=== PATIENT | female | born 1985 | race Caucasian/White ===

== ENCOUNTER 2018-07-22 15:06 | Day surgery (SDC) | payer BC ==
--- NOTE | 2018-07-22 15:44 | EDM.PDOC ---
ED HPI GENERAL MEDICAL PROBLEM - General Chief Complaint: Abdominal Pain Stated Complaint: PAIN IN RIGHT THIGH Time Seen by Provider: 07/22/18 15:44 Source of Information: Reports: Patient History Limitations: Reports: No Limitations - History of Present Illness INITIAL COMMENTS - FREE TEXT/NARRATIVE: HISTORY AND PHYSICAL: History of present illness: Patient is a 33-year-old female here with complaint of RLQ pain in . She states she is 6 weeks , . She has been having dull RLQ pain x 1 week, today has been much more significant. She has been taking Tylenol for her pain which was helping. She states she's had spotting throughout her and has seen Dr. Santos for this, states it was related to post-intercourse spotting. She denies any worsening bleeding/spotting or vaginal discharge. She denies fevers, chills, nausea, vomiting, diarrhea, dysuria, hematuria. She states she was seen last March for possible miscarriage in her program although her hcg was negative at that time. Review of systems: As per history of present illness and below otherwise all systems reviewed and negative. Past medical history: As per history of present illness and as reviewed below otherwise noncontributory. Surgical history: As per history of present illness and as reviewed below otherwise noncontributory. Social history: No reported history of drug or alcohol abuse. Family history: As per history of present illness and as reviewed below otherwise noncontributory. Physical exam: General: Patient sitting comfortably in no acute distress and nontoxic appearing HEENT: Atraumatic, normocephalic, pupils reactive, negative for conjunctival pallor or scleral icterus, mucous membranes moist, throat clear, neck supple, nontender, trachea midline. No meningeal signs. Lungs: Clear to auscultation, breath sounds equal bilaterally, chest nontender. Heart: S1S2, regular, negative for clicks, rubs, or overt murmur. Abdomen: RLQ tenderness to palpation. No rebound, rigidity, or guarding. Negative rovsings, psoas, and obturator. Soft, nondistended. Negative for masses or hepatosplenomegaly. Negative for costovertebral tenderness. Pelvis: Stable nontender. Genitourinary: Deferred. Rectal: Deferred. Extremities: Atraumatic, negative for cords or calf pain. Neurovascular unremarkable. Neuro: Awake, alert, oriented. Cranial nerves II through XII unremarkable. Cerebellum unremarkable. Motor and sensory unremarkable throughout. Exam nonfocal. Notes: 1729 - discussed with Dr. Erickson, she would like a serum progesterone and I will call her back with this result. 1800 - Dr. Erickson informed of progesterone result, she will consult patient in the ED. 1819 - Patient will go to OR for laparoscopic Diagnostics: CBC, CMP, hcg quant, OB US Therapeutics: [place] 5/325mg Prescriptions: Impression: RLQ pain ectopic vs cyst Plan: Patient will go to OR for laparoscopic surgery with Dr. Erickson. Definitive disposition and diagnosis as appropriate pending reevaluation and review of above. 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 ED EXAM, GI/ABD - Physical Exam Exam: See Below (see dictation) Course - Vital Signs Last Recorded V/S: Last Vital Signs Temp 98.7 F 07/22/18 16:06 Pulse 83 07/22/18 16:06 Resp 18 07/22/18 16:06 BP 113/69 07/22/18 16:06 Pulse Ox 100 07/22/18 16:06 - Orders/Labs/Meds Labs: Laboratory Tests 07/22/18 07/22/18 07/22/18 Range/Units 16:00 16:00 16:00 WBC 6.67 (4.0-11.0) K/uL RBC 4.14 L (4.30-5.90) M/uL Hgb 12.5 (12.0-16.0) g/dL Hct 36.1 (36.0-46.0) % MCV 87.2 (80.0-98.0) fL MCH 30.2 (27.0-32.0) pg MCHC 34.6 (31.0-37.0) g/dL RDW Std Deviation 41.3 (28.0-62.0) fl RDW Coeff of Shamar 13 (11.0-15.0) % Plt Count 142 L (150-400) K/uL MPV 11.00 (7.40-12.00) fL Neut % (Auto) 69.5 (48.0-80.0) % Lymph % (Auto) 21.9 (16.0-40.0) % [place] % (Auto) 6.6 (0.0-15.0) % Eos % (Auto) 1.9 (0.0-7.0) % Baso % (Auto) 0.1 (0.0-1.5) % Neut # (Auto) 4.6 (1.4-5.7) K/uL Lymph # (Auto) 1.5 (0.6-2.4) K/uL [place] # (Auto) 0.4 (0.0-0.8) K/uL Eos # (Auto) 0.1 (0.0-0.7) K/uL Baso # (Auto) 0.0 (0.0-0.1) K/uL Nucleated RBC % 0.0 /100WBC Nucleated RBCs # 0 K/uL Sodium 136 (136-145) mmol/L Potassium 4.0 (3.5-5.1) mmol/L Chloride 105 (98-107) mmol/L Carbon Dioxide 25.1 (21.0-32.0) mmol/L BUN 12 (7.0-18.0) mg/dL Creatinine 0.8 (0.6-1.0) mg/dL Est Cr Clr Drug Dosing 82.74 mL/min Estimated GFR (MDRD) > 60.0 ml/min Glucose 104 (74-106) mg/dL Calcium 9.1 (8.5-10.1) mg/dL Total Bilirubin 0.4 (0.2-1.0) mg/dL AST 13 L (15-37) IU/L ALT 22 (14-63) IU/L Alkaline Phosphatase 46 (46-116) U/L Total Protein 6.9 (6.4-8.2) g/dL Albumin 3.4 (3.4-5.0) g/dL Globulin 3.5 (2.6-4.0) g/dL Albumin/Globulin Ratio 1.0 (0.9-1.6) Progesterone 5.57 NG/ML HCG, Quant 3281.0 mIU/mL Meds: Medications Discontinued Medications Generic Name Dose Route Start Last Admin Trade Name Freq PRN Reason Stop Dose Admin Hydrocodone Bitart/Acetaminophen 1 tab 07/22/18 17:34 07/22/18 17:42 [place] 325-5 Mg PO 07/22/18 17:35 1 tab ONETIME ONE Administration Departure - Departure Time of Disposition: 18:19 Disposition: Still A Patient 30 Condition: Good Clinical Impression: RLQ abdominal pain - Discharge Information Referrals: Gabbi Santos MD [Primary Care Provider] - Forms: ED Department Discharge
[2018-07-22 16:47] LABS: CHLORIDE,CL 105 mmol/L (98-107); SODIUM,NA 136 mmol/L (136-145)
--- NOTE | 2018-07-22 17:15 | US ---
INDICATION: , left-sided pelvic pain, quantitative HCG 3281 FINDINGS: There is marked heterogeneous thickening of the endometrium measuring approximate 2.5 cm. This is greatest in the fundal region. No gestational sac is seen. The left ovary is normal. In the right adnexa there is a hypoechoic oval 1.9 x 1.4 x 1.8 cm nodular density that is either exophytic or adjacent to the ovary. The ovary measures 2.3 x 2.0 x 2.0 cm with its small follicle. Small amount of free fluid adjacent to the right ovary is noted. Color Doppler examination demonstrates some peripheral color Doppler surrounding the hypoechoic structure in the right adnexa. IMPRESSION: 1. Abnormal pelvic ultrasound. 2. There is a 1.9 x 1.4 x 1.8 centimeter cm oval-shaped hypoechoic structure exophytic or adjacent to the right ovary. This has a ring of increased color Doppler blood flow. Ectopic is not excluded. 3. Small amount of free fluid in the right pelvis noted. 4. Left ovary within normal limits. 5. Abnormal heterogeneous thickening of the endometrium especially in the fundal region. This is noted to be up to 2.5 cm. No intrauterine is seen 6. 7. Findings discussed with the ordering provider. Dictated by Sotero Parnell MD @ 07/22/2018 5:13:54 PM Dictated by: Sotero Parnell MD @ 07/22/2018 17:14:06 (Electronically Signed)
[2018-07-22] MEDS ORDERED: Acetaminophen/HYDROcodone 325-5 MG Tab PO ONE (17:34)
[2018-07-22] MEDS ORDERED: Succinylcholine 200 MG/10 ML MDV ONE (18:44)
[2018-07-22] MEDS ORDERED: Propofol 200 MG/20 ML SDV ONE (18:44)
[2018-07-22] MEDS ORDERED: Ondansetron 4 MG/2 ML SDV ONE (18:44)
[2018-07-22] MEDS ORDERED: Ketorolac 30 MG/ML SDV ONE (18:44)
[2018-07-22] MEDS ORDERED: Rocuronium 10 MG/ML 10 ML Syringe ONE (18:44)
[2018-07-22] MEDS ORDERED: Midazolam 1 MG/ML 2 ML SDV ONE (18:44)
[2018-07-22] MEDS ORDERED: Lidocaine 2% 5 ML SDV ONE (18:44)
[2018-07-22] MEDS ORDERED: fentaNYL 250 MCG/5 ML SDV ONE (18:45)
[2018-07-22] MEDS ORDERED: Lactated Ringers 1,000 ML IV ONE (18:53)
[2018-07-22] MEDS ORDERED: Vasopressin 20 Units/1 ML MDV ONE (18:56)
[2018-07-22] MEDS ORDERED: Bupivacaine 0.25% 10 ML SDV ONE (18:56)
--- NOTE | 2018-07-22 19:00 | PCM.PREANE ---
Preanesthetic Assessment - Procedure Proposed Procedure: exploratory laparoscopy - Anesthesia/Transfusion/Family Hx Anesthesia History: Prior Anesthesia Without Reaction Family History of Anesthesia Reaction: No Transfusion History: Prior Transfusion Without Reaction - Review of Systems General: No Symptoms Pulmonary: No Symptoms Cardiovascular: No Symptoms Gastrointestinal: No Symptoms Neurological: No Symptoms Other: Reports: None, Anxiety - Physical Assessment NPO Status Date: 07/22/18 NPO Status Time: 17:00 O2 Sat by Pulse Oximetry: 100 Respiratory Rate: 18 Vital Signs: Last Vital Signs Temp 37.1 C 07/22/18 16:06 Pulse 83 07/22/18 16:06 Resp 18 07/22/18 16:06 BP 113/69 07/22/18 16:06 Pulse Ox 100 07/22/18 16:06 Height: 1.6 m Weight: 80.739 kg ASA Class: 2E Mental Status: Alert & Oriented x3 Dentition: Reports: Normal Dentition Thyro-Mental Finger Breadths: 3 Mouth Opening Finger Breadths: 3 ROM/Head Extension: Full Lungs: Clear to Auscultation Cardiovascular: Regular Rate (Risks and benifits of anesthesia discussed extensively with patient and family, questions anwered, pt wishes to proceed.) - Lab Values: Laboratory Last Values WBC 6.67 K/uL (4.0-11.0) 07/22/18 16:00 RBC 4.14 M/uL (4.30-5.90) L 07/22/18 16:00 Hgb 12.5 g/dL (12.0-16.0) 07/22/18 16:00 Hct 36.1 % (36.0-46.0) 07/22/18 16:00 MCV 87.2 fL (80.0-98.0) 07/22/18 16:00 MCH 30.2 pg (27.0-32.0) 07/22/18 16:00 MCHC 34.6 g/dL (31.0-37.0) 07/22/18 16:00 RDW Std Deviation 41.3 fl (28.0-62.0) 07/22/18 16:00 RDW Coeff of Shamar 13 % (11.0-15.0) 07/22/18 16:00 Plt Count 142 K/uL (150-400) L 07/22/18 16:00 MPV 11.00 fL (7.40-12.00) 07/22/18 16:00 Neut % (Auto) 69.5 % (48.0-80.0) 07/22/18 16:00 Lymph % (Auto) 21.9 % (16.0-40.0) 07/22/18 16:00 [place] % (Auto) 6.6 % (0.0-15.0) 07/22/18 16:00 Eos % (Auto) 1.9 % (0.0-7.0) 07/22/18 16:00 Baso % (Auto) 0.1 % (0.0-1.5) 07/22/18 16:00 Neut # (Auto) 4.6 K/uL (1.4-5.7) 07/22/18 16:00 Lymph # (Auto) 1.5 K/uL (0.6-2.4) 07/22/18 16:00 [place] # (Auto) 0.4 K/uL (0.0-0.8) 07/22/18 16:00 Eos # (Auto) 0.1 K/uL (0.0-0.7) 07/22/18 16:00 Baso # (Auto) 0.0 K/uL (0.0-0.1) 07/22/18 16:00 Nucleated RBC % 0.0 /100WBC 07/22/18 16:00 Nucleated RBCs # 0 K/uL 07/22/18 16:00 Sodium 136 mmol/L (136-145) 07/22/18 16:00 Potassium 4.0 mmol/L (3.5-5.1) 07/22/18 16:00 Chloride 105 mmol/L (98-107) 07/22/18 16:00 Carbon Dioxide 25.1 mmol/L (21.0-32.0) 07/22/18 16:00 BUN 12 mg/dL (7.0-18.0) 07/22/18 16:00 Creatinine 0.8 mg/dL (0.6-1.0) 07/22/18 16:00 Est Cr Clr Drug Dosing 82.74 mL/min 07/22/18 16:00 Estimated GFR (MDRD) > 60.0 ml/min 07/22/18 16:00 Glucose 104 mg/dL (74-106) 07/22/18 16:00 Calcium 9.1 mg/dL (8.5-10.1) 07/22/18 16:00 Total Bilirubin 0.4 mg/dL (0.2-1.0) 07/22/18 16:00 AST 13 IU/L (15-37) L 07/22/18 16:00 ALT 22 IU/L (14-63) 07/22/18 16:00 Alkaline Phosphatase 46 U/L (46-116) 07/22/18 16:00 Total Protein 6.9 g/dL (6.4-8.2) 07/22/18 16:00 Albumin 3.4 g/dL (3.4-5.0) 07/22/18 16:00 Globulin 3.5 g/dL (2.6-4.0) 07/22/18 16:00 Albumin/Globulin Ratio 1.0 (0.9-1.6) 07/22/18 16:00 Progesterone 5.57 NG/ML 07/22/18 16:00 HCG, Quant 3281.0 mIU/mL 07/22/18 16:00 - Allergies Allergies/Adverse Reactions: Allergies Allergy/AdvReac Type Severity Reaction Status Date / Time ceftriaxone [From Rocephin] Allergy Rash Verified 04/19/18 17:27 oseltamivir [From Tamiflu] Allergy Rash Verified 04/19/18 17:27 PreAnesthesia Questionnaire Respiratory History: Reports: Asthma 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 History: had Rhogam with past pregnancies Hematologic History: Reports: Blood Transfusion(s) - Infectious Disease History Infectious Disease History: Reports: Chicken Pox - Past Surgical History HEENT Surgical History: Reports: Naso-Sinus Surgery, Tonsillectomy - SUBSTANCE USE Smoking Status *Q: Never Smoker Recreational Drug Use History: No - HOME MEDS Home Medications: Home Meds Albuterol [Ventolin HFA] 2 puff INH BID 04/19/18 [History] Pnv No.95/Ferrous Fum/Folic AC [ Caplet] 1 cap PO DAILY 07/22/18 [ History] - CURRENT (IN HOUSE) MEDS Current Meds: Current Medications Lactated Ringer's (Ringers, Lactated) 1,000 mls @ 999 mls/hr IV .BOLUS ONE Stop: 07/22/18 19:53 Discontinued Medications Hydrocodone Bitart/Acetaminophen ([place] 325-5 Mg) 1 tab PO ONETIME ONE Stop: 07/22/18 17:35 Last Admin: 07/22/18 17:42 Dose: 1 tab Fentanyl (Sublimaze) Confirm Administered Dose 250 mcg .ROUTE .STK-MED ONE Stop: 07/22/18 18:46 Ketorolac Tromethamine (Toradol) Confirm Administered Dose 30 mg .ROUTE .STK- MED ONE Stop: 07/22/18 18:45 Lidocaine (Xylocaine-Mpf 2%) Confirm Administered Dose 5 ml .ROUTE .STK-MED ONE Stop: 07/22/18 18:45 Midazolam HCl (Versed 1 Mg/Ml) Confirm Administered Dose 2 mg .ROUTE .STK-MED ONE Stop: 07/22/18 18:45 Ondansetron HCl (Zofran) Confirm Administered Dose 8 mg .ROUTE .STK-MED ONE Stop: 07/22/18 18:45 Propofol (Diprivan 20 Ml) Confirm Administered Dose 200 mg .ROUTE .STK-MED ONE Stop: 07/22/18 18:45 Rocuronium [place] (Zemuron) Confirm Administered Dose 100 mg .ROUTE .STK-MED ONE Stop: 07/22/18 18:45 Succinylcholine Chloride (Quelicin) Confirm Administered Dose 200 mg .ROUTE .STK -MED ONE Stop: 07/22/18 18:45
[2018-07-22] MEDS ORDERED: Acetaminophen/HYDROcodone 325-5 MG Tab PO PRN (19:12)
[2018-07-22] MEDS ORDERED: Albuterol 0.083% 2.5 MG/3 ML Neb Soln NEB PRN (19:12)
[2018-07-22] MEDS ORDERED: Naloxone 0.4 MG/ML Syringe IVPUSH PRN (19:12)
[2018-07-22] MEDS ORDERED: hydrALAZINE 20 MG/ML SDV IVPUSH PRN ×2 (19:12)
[2018-07-22] MEDS ORDERED: Morphine 4 MG/ML Syringe IVPUSH PRN ×2 (19:12→21:55)
[2018-07-22] MEDS ORDERED: HYDROmorphone 2 MG/ML SDV IVPUSH PRN (19:12)
[2018-07-22] MEDS ORDERED: Meperidine PF 25 MG/ML Syringe IVPUSH PRN (19:12)
[2018-07-22] MEDS ORDERED: Scopolamine 1.5 MG Transdermal Patch TRDERM PRN (19:12)
[2018-07-22] MEDS ORDERED: Ondansetron 4 MG/2 ML SDV IVPUSH PRN ×2 (19:12→21:55)
[2018-07-22] MEDS ORDERED: Acetaminophen 325 MG Tab PO ONE (19:12)
[2018-07-22] MEDS ORDERED: Promethazine 25 MG/ML SDV IM PRN ×2 (19:12→21:55)
[2018-07-22] MEDS ORDERED: Atropine 0.1 MG/ML 10 ML Syringe IVPUSH PRN (19:12)
[2018-07-22] MEDS ORDERED: Metoclopramide 10 MG/2 ML SDV IVPUSH PRN (19:12)
[2018-07-22] MEDS ORDERED: Meperidine PF 25 MG/ML Syringe IV PRN (19:12)
[2018-07-22] MEDS ORDERED: Labetalol 20 MG/4 ML Syringe IVPUSH PRN (19:12)
[2018-07-22] MEDS ORDERED: Dexamethasone 4 MG/ML 5 ML MDV ONE (19:30)
[2018-07-22] MEDS ORDERED: Meperidine PF 25 MG/ML Syringe ONE (21:09)
[2018-07-22] MEDS ORDERED: fentaNYL 100 MCG/2 ML SDV ONE (21:37)
[2018-07-22] MEDS: fentaNYL 100 MCG/2 ML SDV IVPUSH PRN ×2 (21:38→21:44)
--- NOTE | 2018-07-22 21:52 | PCM.POSTAN ---
POST ANESTHESIA ASSESSMENT - VITAL SIGNS Pulse Rate: 86 SaO2: 99 Resp Rate: 16 Blood Pressure: 110/60 Temperature: 37.2 C - RESPIRATORY Respiratory Status: Respiratory Rate WNL - CARDIOVASCULAR CV Status: Pulse Rate WNL - GASTROINTESTINAL GI Status: No Symptoms - POST OP HYDRATION Hydration Status: Adequate & Stable (pt cofortable at this time. no signs or symptoms of anesthesia related complications.)
[2018-07-22] MEDS ORDERED: Ketorolac 30 MG/ML SDV IVPUSH PRN (21:55)
[2018-07-22] MEDS ORDERED: Ketorolac 30 MG/ML SDV IVPUSH ONE (21:55)
[2018-07-22] MEDS ORDERED: Acetaminophen/oxyCODONE 325-5 MG Tab PO PRN ×2 (21:55)
--- NOTE | 2018-07-22 22:15 | PCM.OPNOTE ---
- General Post-Op/Procedure Note Date of Surgery/Procedure: 07/22/18 Operative Procedure(s): Laparoscopic right salphingectomy Findings: Right ectopic with ectopic at the infundibulum of the tube 50 cc hemoperitoneum Pre Op Diagnosis: Acute pelvic pain secondary. r/o ectopic Post-Op Diagnosis: Right ectopic Primary Surgeon: Hudson Hightower Pathology: Right ectopic Fluid Replacement, Intraop: 1,500 Output, Urine Amount: 0 EBL in mLs: 100 Complications: None Condition: Stable
[2018-07-22] MEDS ORDERED: Rho(D) Immune Globulin 300 MCG/2 ML Syringe IM ONE (22:52)
[2018-07-22] MEDS ORDERED: Acetaminophen/oxyCODONE 325-5 MG Tab PO ONE (23:19)
--- NOTE | 2018-07-25 09:39 | OR ---
SURGEON: ABRAM RUBY DATE OF PROCEDURE: 07/22/2018 PREOPERATIVE DIAGNOSIS: Acute pelvic pain, suspected ectopic . POSTOPERATIVE DIAGNOSIS: Right ectopic . IV FLUID: 1500. EBL: 5 mL plus about 90 mL of hemoperitoneum. PROCEDURE: Operative laparoscopy with right salpingectomy. FINDING: Right tubal ectopic in the infundibulum with 90 mL of hemoperitoneum. Normal appearing ovaries and left fallopian tube and uterus. PATHOLOGY: Right tube with ectopic . BRIEF HISTORY: Patient is a 33-year-old patient, about 6 weeks, who complained of acute pelvic pain for 1 week. Yesterday, when she was seen, she said the pain was constant. The patient was extremely in tears. She had an ultrasound done that showed a complex mass in the right adnexa, minimal fluid in the cul-de-sac. Beta-hCG was 3200, progesterone was 5. As a result of patient's discomfort, she was consented for diagnostic laparoscopy. The patient understood the risks, benefits, and alternatives and desired to proceed. PROCEDURE: The patient was taken to the operating room, where general anesthesia was performed without difficulty. She was placed in the dorsolithotomy position with Jem stirrups. She was prepared and draped in the normal usual sterile fashion. Sponge stick was placed in the vagina. Then subumbilical incision was placed, after injection of Marcaine. The abdomen was entered with a fiberoptic trocar with direct entry. Upon entry into the abdomen, the pneumoperitoneum was increased to 50 mmHg. The patient was placed in the reverse Trendelenburg position. The right ectopic was then noted at the infundibulum. A left lower quadrant incision was made two fingerbreadths medial and superior to the anterior iliac spine. The trocar was entered via direct entry. Another incision was made 2 cm above the pubic symphysis and 1 cm to the right. Then, the right tube was held, was coagulated and cut with the aid of the LigaSure device. The hemoperitoneum was suctioned. Then irrigation was done and was suctioned. Hemostasis was noted after the procedure. The pneumoperitoneum was reduced to 5. Hemostasis was also noted. All the trocars were removed from the abdomen. The abdomen was desufflated. After the tube was coagulated and cut along the mesosalpinx, a 12 mm trocar was placed in the umbilical port. EndoCatch bag was placed, and the specimen was placed in the EndoCatch bag and was removed. Laparoscopic incisions were closed with 3-0 Monocryl. The umbilical incision, the fascia was closed with 2-0 Vicryl on a Euro 6 needle, and the incision of the umbilicus was then closed. The skin was closed with 3-0 Monocryl. The patient tolerated the procedure well. All instrument and pad counts were correct x2. BRITTNEY / KIRT /[id number]
== END 2018-07-23 00:15 | disposition home or self-care (01) ==
LOC: MW.ED 15:06 → MW.SDS 21:26 → MW.MS 21:29 → MW.SDS 07-23 00:15
PROVIDERS: ATTEND Obstetrics & Gynecology
DX: O00.101 Right tubal pregnancy without intrauterine pregnancy (principal); O99.52 Diseases of the respiratory system complicating childbirth; J45.909 Unspecified asthma, uncomplicated; Z88.1 Allergy status to other antibiotic agents; Z88.8 Allergy status to other drugs, medicaments and biological substances
CPT/HCPCS: 36415; 59151; 76801; 80053; 84144; 84702; 85025; 86850; 86900; 86901; 96360; 99285; A9270; J0330; J1100; J1885; J2001; J2405; J2704; J2792; J3010; J3490; J7120; 36430; 88305; J2250

== ENCOUNTER 2019-04-26 00:23 | Inpatient (IN) | payer BC ==
[2019-04-26] MEDS ORDERED: Nalbuphine 10 MG/1 ML Vial IVPUSH PRN (00:44)
[2019-04-26] MEDS ORDERED: Misoprostol 200 MCG Tab PO PRN (00:44)
[2019-04-26] MEDS ORDERED: Sodium Chloride 0.9% 2.5 ML Syringe FLUSH PRN (00:44)
[2019-04-26] MEDS ORDERED: Terbutaline 1 MG/ML SDV SUBCUT PRN (00:44)
[2019-04-26] MEDS ORDERED: Sodium Chloride 0.9% 10 ML SDV IV PRN (00:44)
[2019-04-26] MEDS ORDERED: Methylergonovine 0.2 MG/1 ML Amp IM PRN (00:44)
[2019-04-26] MEDS ORDERED: Sodium Chloride 0.9% 10 ML Syringe FLUSH PRN (00:44)
[2019-04-26] MEDS ORDERED: Lidocaine 1% 50 ML MDV INJECT PRN (00:44)
[2019-04-26] MEDS ORDERED: Tranexamic Acid 1,000 MG in Sodium Chloride 0.9% 100 ML IV PRN (00:44)
[2019-04-26] MEDS ORDERED: Water For Irrigation,Sterile 1,000 ML Container IRR PRN (00:44)
[2019-04-26] MEDS ORDERED: Carboprost Tromethamine 250 MCG/1 ML Amp IM PRN (00:44)
[2019-04-26] MEDS ORDERED: Oxytocin/0.9 % Sodium Chloride 30 UNIT/500 ML BAG IV SCH ×2 (00:45)
[2019-04-26] MEDS: Misoprostol 25 MCG (1/4 of 100 MCG) Tab VAG PRN ×4 (01:39→14:31)
[2019-04-26] MEDS: Butorphanol 1 MG/ML SDV IVPUSH PRN ×2 (14:55→18:33)
[2019-04-26] MEDS: Lactated Ringers 1,000 ML IV SCH ×2 (21:35→22:15)
[2019-04-26] MEDS ORDERED: fentaNYL 100 MCG/2 ML SDV ONE (21:49)
[2019-04-26] MEDS ORDERED: Ropivacaine 0.2% 2 MG/ML 20 ML SDV ONE (21:50)
[2019-04-26] MEDS ORDERED: Ropivacaine HCl/PF 100 ML ONE (21:50)
--- NOTE | 2019-04-26 22:46 | PCM.PREANE ---
Preanesthetic Assessment - Procedure Proposed Procedure: Requested for labor epidural. G5D6-00 weeks-3cm. Planning to be placed on pitocin. Hx of slowing labor with epidurals in past. - Anesthesia/Transfusion/Family Hx Anesthesia History: Prior Anesthesia Without Reaction Family History of Anesthesia Reaction: No Transfusion History: No Prior Transfusion(s) Type of Transfusion Reactions: Reports: Unknown Intubation History: Unknown - Review of Systems General: No Symptoms Pulmonary: No Symptoms Cardiovascular: No Symptoms Gastrointestinal: No Symptoms Neurological: No Symptoms Other: Reports: None - Physical Assessment NPO Status Date: 04/26/19 NPO Status Time: 22:00 (Clear liquids) Height: 1.6 m Weight: 97.976 kg ASA Class: 2 Mental Status: Alert & Oriented x3 Airway Class: Mallampati = 2 Dentition: Reports: Normal Dentition Thyro-Mental Finger Breadths: 3 Mouth Opening Finger Breadths: 3 ROM/Head Extension: Full Lungs: Clear to Auscultation Cardiovascular: Regular Rate - Lab Values: Laboratory Last Values WBC 10.04 K/uL (4.0-11.0) 04/26/19 01:05 RBC 4.13 M/uL (4.30-5.90) L 04/26/19 01:05 Hgb 12.8 g/dL (12.0-16.0) 04/26/19 01:05 Hct 36.8 % (36.0-46.0) 04/26/19 01:05 MCV 89.1 fL (80.0-98.0) 04/26/19 01:05 MCH 31.0 pg (27.0-32.0) 04/26/19 01:05 MCHC 34.8 g/dL (31.0-37.0) 04/26/19 01:05 RDW Std Deviation 47.1 fl (28.0-62.0) 04/26/19 01:05 RDW Coeff of Shamar 15 % (11.0-15.0) 04/26/19 01:05 Plt Count 129 K/uL (150-400) L 04/26/19 01:05 MPV 11.30 fL (7.40-12.00) 04/26/19 01:05 Blood Type A NEGATIVE 04/26/19 01:05 Antibody Screen NEGATIVE 04/26/19 01:05 - Allergies Allergies/Adverse Reactions: Allergies Allergy/AdvReac Type Severity Reaction Status Date / Time ceftriaxone [From Rocephin] Allergy Rash Verified 04/19/18 17:27 oseltamivir [From Tamiflu] Allergy Rash Verified 04/19/18 17:27 - Blood Blood Available: No Product(s) Available: None - Anesthesia Plan Pre-Op Medication Ordered: None - Acknowledgements Anesthesia Type Planned: Epidural Pt an Appropriate Candidate for the Planned Anesthesia: Yes Alternatives and Risks of Anesthesia Discussed w Pt/Guardian: Yes Pt/Guardian Understands and Agrees with Anesthesia Plan: Yes Additional Comments: Discussed. Permit signed. ? answered. Wishes to proceed. PreAnesthesia Questionnaire HEENT History: Reports: None Cardiovascular History: Reports: None Respiratory History: Reports: Asthma Gastrointestinal History: Reports: None Genitourinary History: Reports: None ORDERLY History: Reports: Other OB/BYN History: had Rhogam with past pregnancies Musculoskeletal History: Reports: None Neurological History: Reports: None Psychiatric History: Reports: None Endocrine/Metabolic History: Reports: None Hematologic History: Reports: Blood Transfusion(s) Immunologic History: Reports: None Oncologic (Cancer) History: Reports: None Dermatologic History: Reports: None - Infectious Disease History Infectious Disease History: Reports: Chicken Pox - Past Surgical History Head Surgeries/Procedures: Reports: None HEENT Surgical History: Reports: Adenoidectomy, Naso-Sinus Surgery, Tonsillectomy, Other (See Below) Other HEENT Surgeries/Procedures: [place] tooth extraction Cardiovascular Surgical History: Reports: None Respiratory Surgical History: Reports: None GI Surgical History: Reports: None Female Surgical History: Reports: None Endocrine Surgical History: Reports: None Neurological Surgical History: Reports: None Musculoskeletal Surgical History: Reports: None Oncologic Surgical History: Reports: None Dermatological Surgical History: Reports: None - SUBSTANCE USE Smoking Status *Q: Never Smoker Second Hand Smoke Exposure: No Recreational Drug Use History: No - HOME MEDS Home Medications: Home Meds Albuterol [Ventolin HFA] 2 puff INH BID 04/19/18 [History] Acetaminophen/oxyCODONE [Percocet 325-5 MG] 1 - 2 tab PO Q4H PRN 5 Days #10 tablet 07/22/18 [Rx] Pnv No.95/Ferrous Fum/Folic AC [ Caplet] 1 cap PO DAILY 07/22/18 [ History] - CURRENT (IN HOUSE) MEDS Current Meds: Current Medications Butorphanol Tartrate (Stadol) 1 mg IVPUSH Q1H PRN PRN Reason: Pain Last Admin: 04/26/19 18:33 Dose: 1 mg Carboprost Tromethamine (Hemabate Ds) 250 mcg IM ASDIRECTED PRN PRN Reason: Post Hemorrhage Lactated Ringer's (Ringers, Lactated) 1,000 mls @ 150 mls/hr IV ASDIRECTED JJ Last Infusion: 04/26/19 22:37 Dose: 150 mls/hr Oxytocin/Sodium Chloride (Oxytocin 30 Unit/500 Ml-Ns) 30 unit in 500 mls @ 500 mls/hr IV TITRATE JJ Oxytocin/Sodium Chloride (Oxytocin 30 Unit/500 Ml-Ns) 30 unit in 500 mls @ 2 mls/hr IV TITRATE JJ; Protocol Tranexamic Acid 1,000 mg/ (Sodium Chloride) 110 mls @ 660 mls/hr IV ONETIME PRN PRN Reason: Bleeding Lidocaine HCl (Xylocaine 1%) 50 ml INJECT ONETIME PRN PRN Reason: Laceration repair Methylergonovine Maleate (Methergine) 0.2 mg IM ASDIRECTED PRN PRN Reason: Post Hemorrhage Misoprostol (Cytotec) 200 mcg PO ONETIME PRN PRN Reason: Post Hemorrhage Misoprostol (Cytotec) 25 mcg VAG Q4H PRN PRN Reason: Cervical Ripening Last Admin: 04/26/19 14:31 Dose: 25 mcg Nalbuphine HCl (Nubain) 10 mg IVPUSH Q1H PRN PRN Reason: Pain (severe 7-10) Sodium Chloride (Saline Flush) 10 ml FLUSH ASDIRECTED PRN PRN Reason: Keep Vein Open Sodium Chloride (Saline Flush) 2.5 ml FLUSH ASDIRECTED PRN PRN Reason: Keep Vein Open Sodium Chloride (Normal Saline) 10 ml IV ASDIRECTED PRN PRN Reason: IV Use Sterile Water (Sterile Water For Irrigation) 1,000 ml IRR ASDIRECTED PRN PRN Reason: delivery Terbutaline Sulfate ([place]ine) 0.25 mg SUBCUT ASDIRECTED PRN PRN Reason: Tacysystole Discontinued Medications Fentanyl (Sublimaze) Confirm Administered Dose 100 mcg .ROUTE .STK-MED ONE Stop: 04/26/19 21:50 Ropivacaine (Naropin 0.2%) Confirm Administered Dose 100 mls @ as directed .ROUTE .STK-MED ONE Stop: 04/26/19 21:51 Ropivacaine (Naropin 0.2%) Confirm Administered Dose 20 ml .ROUTE .STK-MED ONE Stop: 04/26/19 21:51
--- NOTE | 2019-04-26 23:02 | PCM.PRNOTE ---
- Free Text/Narrative Note: 34 y/o in active labor, 3cm, requests labor analgesia. Planning on starting pitocin tonight. 22:03 Prep with chloroprep 22:06 L3-L4 space localized with 4ml 1% lidocaine 22:09 Space ID'd via KRYSTIAN with air/saline combo. Re-ID'd with 3ml saline. 22:10 Catheter threaded to 8cm without incident. 22:11-12 Test dose with 1.5% Lido with 1:200K epi added. Negative aspiration. Negative test. Secured with occlusive drsg. 22:18-26 Bolus given. 8ml 0.2% Naropin+ 100mcg Fentanyl added. Vital signs stable, see nurses notes. Labored slowed, past Hx of same/PT. Pain 0. 23:00 Doing well. Labor resumed. VSS. Will start infusion @ 8ml/hr with 4ml q15 bolus option. Doing well at present. No issues noted.
[2019-04-27] MEDS: Lactated Ringers 1,000 ML IV SCH ×3 (00:23→14:40)
[2019-04-27] MEDS ORDERED: Ondansetron 4 MG/2 ML SDV IVPUSH PRN (14:16)
[2019-04-27] MEDS ORDERED: fentaNYL 100 MCG/2 ML SDV ONE (14:24)
[2019-04-27] MEDS ORDERED: Ropivacaine HCl/PF 100 ML ONE (14:25)
--- NOTE | 2019-04-27 14:33 | PCM.PRNOTE ---
- Free Text/Narrative Note: Anes NOte I was called to replace a completed epidural infusion bag. I administered a top up dose of 5 cc 2%lido with epi. I then replaced epidural bag with a new 100 cc 0.2% ropivicaine with 1 mcg/cc fentanyl added. Infusion was restarted at 8 cc hr with 6 cc q 20 min prn bolus. Andrew reports very good analgesia. Sanju Stone CRNA
[2019-04-27] MEDS ORDERED: Acetaminophen 500 MG Tab PO ONE (15:29)
[2019-04-27] MEDS ORDERED: Ampicillin/Sulbactam Na 3 GM in Sodium Chloride 0.9% 100 ML IV ONE (15:29)
[2019-04-27] MEDS ORDERED: Ibuprofen 400 MG Tab PO PRN (16:03)
[2019-04-27] MEDS ORDERED: Bisacodyl 10 MG Supp RECTAL PRN (16:03)
[2019-04-27] MEDS ORDERED: Lanolin 100% Cream 7 GM Tube TOP PRN (16:03)
[2019-04-27] MEDS ORDERED: Acetaminophen 500 MG Tab PO PRN ×2 (16:03)
[2019-04-27] MEDS ORDERED: Witch Hazel Medicated Pads 40/Jar TOP PRN (16:03)
[2019-04-27] MEDS ORDERED: Docusate Sodium 100 MG Cap PO PRN (16:03)
[2019-04-27] MEDS ORDERED: Ibuprofen 800 MG Tab PO PRN (16:03)
[2019-04-27] MEDS ORDERED: oxyCODONE 5 MG Tab PO PRN (16:03)
[2019-04-27] MEDS ORDERED: Benzocaine/Menthol 20%-0.5% Spray 78 GM Cannister TOP PRN (16:03)
--- NOTE | 2019-04-27 16:08 | PCM.DEL ---
L & D Note - General Info Date of Service: 04/27/19 Mother's Due Date: 05/03/19 - Delivery Note Labor: Augmented by Oxytocin Cervical Ripening Method: Misoprostil Delivery Outcome: Livebirth Delivery Method: Spontaneous Vaginal Delivery-Single Presentation: Right Occiput Anterior (CHARLIE) Nuchal Cord: Present Anesthesia Type: Epidural Amniotic Fluid Description: Meconium Stained Episiotomy Type: None Laceration: None Placenta: Intact Estimated Blood Loss: 200 Resuscitation Needed: No : Bulb Syringe, Stimulated, Warmed Score 1 min: 8 Score 5 min: 9 Delivery Comments (Free Text/Narrative):: Live male delivered at 1535 , 8/9 weight 3820g, intact perineum - General Info Date of Service: 04/27/19 - Patient Data Vitals - Most Recent: Last Vital Signs Temp 38.6 C H 04/27/19 15:38 Pulse Resp BP Pulse Ox Weight - Most Recent: 97.976 kg Med Orders - Current: Current Medications Butorphanol Tartrate (Stadol) 1 mg IVPUSH Q1H PRN PRN Reason: Pain Last Admin: 04/26/19 18:33 Dose: 1 mg Carboprost Tromethamine (Hemabate Ds) 250 mcg IM ASDIRECTED PRN PRN Reason: Post Hemorrhage Lactated Ringer's (Ringers, Lactated) 1,000 mls @ 150 mls/hr IV ASDIRECTED JJ Last Admin: 04/27/19 14:40 Dose: 150 mls/hr Oxytocin/Sodium Chloride (Oxytocin 30 Unit/500 Ml-Ns) 30 unit in 500 mls @ 500 mls/hr IV TITRATE JJ Oxytocin/Sodium Chloride (Oxytocin 30 Unit/500 Ml-Ns) 30 unit in 500 mls @ 2 mls/hr IV TITRATE JJ; Protocol Last Titration: 04/27/19 15:25 Dose: 16 munits/min, 16 mls/hr Tranexamic Acid 1,000 mg/ (Sodium Chloride) 110 mls @ 660 mls/hr IV ONETIME PRN PRN Reason: Bleeding Ampicillin Sodium/Sulbactam (Sodium 3 gm/ Sodium Chloride) 100 mls @ 200 mls/ hr IV ONETIME ONE Stop: 04/27/19 15:58 Lidocaine HCl (Xylocaine 1%) 50 ml INJECT ONETIME PRN PRN Reason: Laceration repair Methylergonovine Maleate (Methergine) 0.2 mg IM ASDIRECTED PRN PRN Reason: Post Hemorrhage Last Admin: 04/27/19 15:42 Dose: 0.2 mg Misoprostol (Cytotec) 200 mcg PO ONETIME PRN PRN Reason: Post Hemorrhage Misoprostol (Cytotec) 25 mcg VAG Q4H PRN PRN Reason: Cervical Ripening Last Admin: 04/26/19 14:31 Dose: 25 mcg Nalbuphine HCl (Nubain) 10 mg IVPUSH Q1H PRN PRN Reason: Pain (severe 7-10) Ondansetron HCl (Zofran) 4 mg IVPUSH Q6H PRN PRN Reason: Nausea/Vomiting Last Admin: 04/27/19 14:40 Dose: 4 mg Sodium Chloride (Saline Flush) 10 ml FLUSH ASDIRECTED PRN PRN Reason: Keep Vein Open Sodium Chloride (Saline Flush) 2.5 ml FLUSH ASDIRECTED PRN PRN Reason: Keep Vein Open Sodium Chloride (Normal Saline) 10 ml IV ASDIRECTED PRN PRN Reason: IV Use Sterile Water (Sterile Water For Irrigation) 1,000 ml IRR ASDIRECTED PRN PRN Reason: delivery Last Admin: 04/27/19 15:38 Dose: 1,000 ml Terbutaline Sulfate (Brethine) 0.25 mg SUBCUT ASDIRECTED PRN PRN Reason: Tacysystole Discontinued Medications Acetaminophen (Tylenol Extra Strength) 1,000 mg PO ONETIME ONE Stop: 04/27/19 15:30 Last Admin: 04/27/19 15:38 Dose: 1,000 mg Fentanyl (Sublimaze) Confirm Administered Dose 100 mcg .ROUTE .STK-MED ONE Stop: 04/26/19 21:50 Last Admin: 04/27/19 09:06 Dose: Not Given Fentanyl (Sublimaze) Confirm Administered Dose 100 mcg .ROUTE .STK-MED ONE Stop: 04/27/19 14:25 Last Admin: 04/27/19 14:45 Dose: Not Given Ropivacaine (Naropin 0.2%) Confirm Administered Dose 100 mls @ as directed .ROUTE .STK-MED ONE Stop: 04/26/19 21:51 Last Admin: 04/27/19 09:06 Dose: Not Given Fentanyl/Bupivacaine HCl (Ahvpajqv-Vgnwk-Up 2 Mcg/Ml-0.125%) Confirm Administered Dose 100 mls @ as directed .ROUTE .Played-MED ONE Stop: 04/27/19 08:57 Last Admin: 04/27/19 09:07 Dose: Not Given Ropivacaine (Naropin 0.2%) Confirm Administered Dose 100 mls @ as directed .ROUTE .Played-MED ONE Stop: 04/27/19 14:26 Last Admin: 04/27/19 14:45 Dose: Not Given Ropivacaine (Naropin 0.2%) Confirm Administered Dose 20 ml .ROUTE .Played-MED ONE Stop: 04/26/19 21:51 Last Admin: 04/27/19 09:06 Dose: Not Given - Problem List & Annotations (1) Vaginal delivery SNOMED Code(s): 116793453 Code(s): O80 - ENCOUNTER FOR FULL-TERM UNCOMPLICATED DELIVERY Status: Acute Current Visit: Yes - Problem List Review Problem List Initiated/Reviewed/Updated: Yes - My Orders Last 24 Hours: My Active Orders 04/27/19 14:16 Ondansetron [Zofran] 4 mg IVPUSH Q6H PRN 04/27/19 15:29 Ampicillin/Sulbactam Na [Unasyn] 3 gm Sodium Chloride 0.9% [Normal Saline] 100 ml IV ONETIME 04/27/19 16:03 Patient Status [ADT] Routine May Shower [RC] ASDIRECTED Up ad Sandi [RC] ASDIRECTED Vital Signs [RC] PER UNIT ROUTINE BLOOD GAS ARTERIAL UMBILICAL [BG] Stat BLOOD GAS VENOUS UMBILICAL [BG] Stat RHIG WORKUP, [BBK] Routine Acetaminophen [Tylenol Extra Strength] 1,000 mg PO Q4H PRN Acetaminophen [Tylenol Extra Strength] 500 mg PO Q4H PRN Benzocaine/Menthol [Dermoplast Pain Relief 20%-0.5% Wallace] 78 gm TOP ASDIRECTED PRN Bisacodyl [Dulcolax] 10 mg RECTAL ONETIME PRN Docusate Sodium [Colace] 100 mg PO BID PRN Ibuprofen [Motrin] 400 mg PO Q4H PRN Ibuprofen [Motrin] 800 mg PO Q6H PRN Lanolin [Lansinoh HPA] See Dose Instructions TOP ASDIRECTED PRN [place] [Tucks] 1 pad TOP ASDIRECTED PRN oxyCODONE 5 mg PO Q2H PRN Assess Lochia [WOMSER] Per Unit Routine Assess Uterine Involution [WOMSER] Per Unit Routine Peripheral IV Discontinue [OM.PC] Routine 04/28/19 05:11 HEMOGLOBIN/HEMATOCRIT,HH [HEME] Timed
--- NOTE | 2019-04-27 20:47 | OR ---
SURGEON: ABRAM HIGHTOWER DATE OF PROCEDURE: 04/27/2019 PREOPERATIVE DIAGNOSES: A 34-year-old G5, P2-0-2-2 at 39 weeks 0 days, undergoing induction of labor for suspected macrosomia. RH negative POSTOPERATIVE DIAGNOSIS: A 34-year-old G5, P2-0-2-2 at 39 weeks 0 days, undergoing induction of labor for suspected macrosomia. RH negative PROCEDURE: Normal spontaneous vaginal delivery. PRIMARY SURGEON: Abram Highotwer. ANESTHESIA: Epidural. ESTIMATED BLOOD LOSS: 200. IV FLUID: Pitocin running. NOTES AND FINDINGS: Live male delivered at 1535. score of 8 and 9. Weight is 3820 g. BRIEF HISTORY: She is a 34-year-old G5, P2-2-0-2 at 39 weeks 0 days, who came in for induction of labor secondary to suspected macrosomia. She also desired an elective induction of labor. She was Rh-negative. Also history of HSV, on acyclovir. No active lesions.On admission, she received a couple of doses of Cytotec about 5 doses, after which Pitocin was started. After Pitocin was started, she was AROM'd, clear fluid was noted. After which, the patient then made change, she became fully dilated. PROCEDURE: On the patient being fully dilated, she was encouraged to push. With good pushing effort, she delivered the head, subsequently by the anterior and posterior shoulder, then the body of the was delivered. Delayed cord clamping was observed. The placenta was delivered via controlled cord traction. Cord blood gases were obtained. The bimanual exam was done. Uterus was noted to be firm. Perineum was noted to be intact. The patient was left in Labor and Delivery room in stable condition. All instrument and pad count were correct x2. BRITTNEY / KIRT /[id number] LAST
--- NOTE | 2019-04-28 06:07 | PCM.POSTAN ---
POST ANESTHESIA ASSESSMENT - MENTAL STATUS Mental Status: Alert - VITAL SIGNS Vital Signs: Last Vital Signs Temp 37.3 C 04/27/19 17:15 Pulse Resp BP Pulse Ox - RESPIRATORY Respiratory Status: Respiratory Rate WNL - CARDIOVASCULAR CV Status: Pulse Rate WNL - GASTROINTESTINAL GI Status: No Symptoms - POST OP HYDRATION Hydration Status: Adequate & Stable
--- NOTE | 2019-04-28 06:07 | PCM48HPAN ---
Post Anesthesia Note - EVALUATION WITHIN 48HRS OF ANESTHETIC Vital Signs in Normal Range: Yes Patient Participated in Evaluation: Yes Respiratory Function Stable: Yes Airway Patent: Yes Cardiovascular Function Stable: Yes Hydration Status Stable: Yes Pain Control Satisfactory: Yes Nausea and Vomiting Control Satisfactory: Yes Mental Status Recovered: Yes Vital Signs: Last Vital Signs Temp 37.3 C 04/27/19 17:15 Pulse Resp BP Pulse Ox
--- NOTE | 2019-04-28 08:19 | PCM.PNPP ---
- General Info Date of Service: 04/28/19 Admission Dx/Problem (Free Text): Pain well controlled. Bleeding minimal. without difficulty. Functional Status: Reports: Pain Controlled, Tolerating Diet, Ambulating, Urinating - Review of Systems General: Reports: No Symptoms HEENT: Reports: No Symptoms Pulmonary: Denies: Shortness of Breath Cardiovascular: Denies: Chest Pain Gastrointestinal: Denies: Abdominal Pain Genitourinary: Reports: No Symptoms Musculoskeletal: Reports: No Symptoms Skin: Reports: No Symptoms Neurological: Reports: No Symptoms Psychiatric: Reports: No Symptoms - Patient Data Vital Signs - Most Recent: Last Vital Signs Temp 36.4 C 04/28/19 03:00 Pulse 75 04/28/19 03:00 Resp 18 04/28/19 03:00 BP 96/61 04/28/19 03:00 Pulse Ox 95 04/28/19 03:00 Weight - Most Recent: 97.976 kg I&O - Last 24 Hours: Intake & Output 04/27/19 04/28/19 04/28/19 22:59 06:59 14:59 Intake Total 2 Balance 2 Lab Results - Last 24 Hours: Laboratory Results - last 24 hr 04/26/19 04/27/19 04/27/19 Range/Units 01:05 15:35 16:25 Hgb (12.0-16.0) g/dL Hct (36.0-46.0) % Cord ABG pH 7.290 (7.18-7.38) Cord ABG Base Excess -6 (-10--2) Cord VBG pH 7.367 (7.25-7.45) Cord VBG Base Excess -6 (-10--2) RPR Non Reactive (NonRea<1:1) Screen NEGATIVE (NEGATIVE) RhIG Candidate? YES Rhogam Indicated YES, BABY RH POS H 04/28/19 Range/Units 06:15 Hgb 11.7 L (12.0-16.0) g/dL Hct 34.6 L (36.0-46.0) % Cord ABG pH (7.18-7.38) Cord ABG Base Excess (-10--2) Cord VBG pH (7.25-7.45) Cord VBG Base Excess (-10--2) RPR (NonRea<1:1) Screen (NEGATIVE) RhIG Candidate? Rhogam Indicated Med Orders - Current: Current Medications Acetaminophen (Tylenol Extra Strength) 500 mg PO Q4H PRN PRN Reason: Pain Acetaminophen (Tylenol Extra Strength) 1,000 mg PO Q4H PRN PRN Reason: Pain Benzocaine/Menthol (Dermoplast Pain Relief 20%-0.5% Irving) 78 gm TOP ASDIRECTED PRN PRN Reason: Perineal Comfort Measure Bisacodyl (Dulcolax) 10 mg RECTAL ONETIME PRN PRN Reason: Constipation Butorphanol Tartrate (Stadol) 1 mg IVPUSH Q1H PRN PRN Reason: Pain Last Admin: 04/26/19 18:33 Dose: 1 mg Carboprost Tromethamine (Hemabate Ds) 250 mcg IM ASDIRECTED PRN PRN Reason: Post Hemorrhage Docusate Sodium (Colace) 100 mg PO BID PRN PRN Reason: Constipation Emollient Ointment (Lansinoh Hpa) 0 gm TOP ASDIRECTED PRN PRN Reason: Sore Nipples Lactated Ringer's (Ringers, Lactated) 1,000 mls @ 150 mls/hr IV ASDIRECTED JJ Last Admin: 04/27/19 14:40 Dose: 150 mls/hr Oxytocin/Sodium Chloride (Oxytocin 30 Unit/500 Ml-Ns) 30 unit in 500 mls @ 500 mls/hr IV TITRATE JJ Oxytocin/Sodium Chloride (Oxytocin 30 Unit/500 Ml-Ns) 30 unit in 500 mls @ 2 mls/hr IV TITRATE JJ; Protocol Last Titration: 04/27/19 15:25 Dose: 16 munits/min, 16 mls/hr Tranexamic Acid 1,000 mg/ (Sodium Chloride) 110 mls @ 660 mls/hr IV ONETIME PRN PRN Reason: Bleeding Ibuprofen (Motrin) 400 mg PO Q4H PRN PRN Reason: Pain Ibuprofen (Motrin) 800 mg PO Q6H PRN PRN Reason: Pain Lidocaine HCl (Xylocaine 1%) 50 ml INJECT ONETIME PRN PRN Reason: Laceration repair Methylergonovine Maleate (Methergine) 0.2 mg IM ASDIRECTED PRN PRN Reason: Post Hemorrhage Last Admin: 04/27/19 15:42 Dose: 0.2 mg Misoprostol (Cytotec) 200 mcg PO ONETIME PRN PRN Reason: Post Hemorrhage Misoprostol (Cytotec) 25 mcg VAG Q4H PRN PRN Reason: Cervical Ripening Last Admin: 04/26/19 14:31 Dose: 25 mcg Nalbuphine HCl (Nubain) 10 mg IVPUSH Q1H PRN PRN Reason: Pain (severe 7-10) Ondansetron HCl (Zofran) 4 mg IVPUSH Q6H PRN PRN Reason: Nausea/Vomiting Last Admin: 04/27/19 14:40 Dose: 4 mg Oxycodone HCl (Oxycodone) 5 mg PO Q2H PRN PRN Reason: Pain Sodium Chloride (Saline Flush) 10 ml FLUSH ASDIRECTED PRN PRN Reason: Keep Vein Open Sodium Chloride (Saline Flush) 2.5 ml FLUSH ASDIRECTED PRN PRN Reason: Keep Vein Open Sodium Chloride (Normal Saline) 10 ml IV ASDIRECTED PRN PRN Reason: IV Use Sterile Water (Sterile Water For Irrigation) 1,000 ml IRR ASDIRECTED PRN PRN Reason: delivery Last Admin: 04/27/19 15:38 Dose: 1,000 ml Terbutaline Sulfate (Brethine) 0.25 mg SUBCUT ASDIRECTED PRN PRN Reason: Tacysystole [place] (Tucks) 1 pad TOP ASDIRECTED PRN PRN Reason: comfort care Discontinued Medications Acetaminophen (Tylenol Extra Strength) 1,000 mg PO ONETIME ONE Stop: 04/27/19 15:30 Last Admin: 04/27/19 15:38 Dose: 1,000 mg Fentanyl (Sublimaze) Confirm Administered Dose 100 mcg .ROUTE .STK-MED ONE Stop: 04/26/19 21:50 Last Admin: 04/27/19 09:06 Dose: Not Given Fentanyl (Sublimaze) Confirm Administered Dose 100 mcg .ROUTE .STK-MED ONE Stop: 04/27/19 14:25 Last Admin: 04/27/19 14:45 Dose: Not Given Ropivacaine (Naropin 0.2%) Confirm Administered Dose 100 mls @ as directed .ROUTE .STK-MED ONE Stop: 04/26/19 21:51 Last Admin: 04/27/19 09:06 Dose: Not Given Fentanyl/Bupivacaine HCl (Yzpggtqm-Faivq-Ui 2 Mcg/Ml-0.125%) Confirm Administered Dose 100 mls @ as directed .ROUTE .STK-MED ONE Stop: 04/27/19 08:57 Last Admin: 04/27/19 09:07 Dose: Not Given Ropivacaine (Naropin 0.2%) Confirm Administered Dose 100 mls @ as directed .ROUTE .STK-MED ONE Stop: 04/27/19 14:26 Last Admin: 04/27/19 14:45 Dose: Not Given Ampicillin Sodium/Sulbactam (Sodium 3 gm/ Sodium Chloride) 100 mls @ 200 mls/ hr IV ONETIME ONE Stop: 04/27/19 15:58 Last Admin: 04/27/19 16:52 Dose: 200 mls/hr Ropivacaine (Naropin 0.2%) Confirm Administered Dose 20 ml .ROUTE .STK-MED ONE Stop: 04/26/19 21:51 Last Admin: 04/27/19 09:06 Dose: Not Given - Infant Interaction Infant Disposition, : [place] in Room with Family Interaction: Other (see below) (Family member holding infant) Feeding: Attempted ; Nursed Fair/Poor Support Person: - Recovery Exam Fundal Tone: Firm Fundal Level: 1 Fingerbreadths Below Umbilicus Fundal Placement: Midline Lochia Amount: Scant Lochia Color: Rubra/Red Bladder Status: Voiding - Exam General: Alert, Oriented Lungs: Clear to Auscultation, Normal Respiratory Effort Cardiovascular: Regular Rate, Regular Rhythm GI/Abdominal Exam: Soft, Non-Tender Extremities: Normal Inspection, No Pedal Edema Skin: Warm, Dry, Intact Neurological: No New Focal Deficit Psy/Mental Status: Alert, Normal Affect, Normal Mood - Problem List & Annotations (1) Vaginal delivery SNOMED Code(s): 367364650 Code(s): O80 - ENCOUNTER FOR FULL-TERM UNCOMPLICATED DELIVERY Status: Acute Current Visit: Yes - Problem List Review Problem List Initiated/Reviewed/Updated: Yes - My Orders Last 24 Hours: My Active Orders 04/28/19 08:16 Ready for Discharge [RC] PER UNIT ROUTINE - Assessment Assessment:: 34yo P3 s/p spontaneous vaginal delivery, PPD#1 - Plan Plan:: Routine care. Patient desires discharge home today if infant cleared by shredding specialist. Reviewed discharge instructions.
== END 2019-04-28 18:00 | disposition home or self-care (01) | DRG 560 ==
LOC: MW.OBCHECK 00:23 → MW.OB 00:24 → MW.OBCHECK 00:45 → MW.OB 04-27 15:35 → OBSVTOIN 04-28 04:03
PROVIDERS: ADMIT Obstetrics & Gynecology; ATTEND Obstetrics & Gynecology
PROC: 10E0XZZ Delivery of Products of Conception, External Approach (ICD-10-PCS; principal; 2019-04-28)
PROC: 10907ZC Drainage of Amniotic Fluid, Therapeutic from Products of Conception, Via Natural or Artificial Opening (ICD-10-PCS; 2019-04-28)
PROC: 3E0R3BZ Introduction of Anesthetic Agent into Spinal Canal, Percutaneous Approach (ICD-10-PCS; 2019-04-28)
DX: O77.0 Labor and delivery complicated by meconium in amniotic fluid (principal); Z3A.39 39 weeks gestation of pregnancy; Z37.0 Single live birth
CPT/HCPCS: 36415; 51702; 59025; 59409; 82803; 85014; 85018; 85027; 85460; 86593; 86850; 86900; 86901; A9270-GY; J0295; J0595; J2210; J2405; J2590; J2792; J7030; J7120

== ENCOUNTER 2021-07-02 08:00 | Inpatient (IN) | payer BC ==
[2021-07-02] MEDS ORDERED: Water For Irrigation,Sterile 1,000 ML Container IRR PRN (08:04)
[2021-07-02] MEDS ORDERED: Terbutaline 1 MG/ML SDV SUBCUT PRN (08:04)
[2021-07-02] MEDS ORDERED: Sodium Chloride 0.9% 20 ML SDV IV PRN (08:04)
[2021-07-02] MEDS ORDERED: Butorphanol 1 MG/ML SDV IVPUSH PRN (08:04)
[2021-07-02] MEDS ORDERED: Tranexamic Acid 1,000 MG in Sodium Chloride 0.9% 100 ML IV PRN (08:04)
[2021-07-02] MEDS ORDERED: Methylergonovine 0.2 MG/1 ML Amp IM PRN (08:04)
[2021-07-02] MEDS ORDERED: Misoprostol 200 MCG Tab PO PRN (08:04)
[2021-07-02] MEDS ORDERED: Lidocaine 1% 50 ML MDV INJECT PRN (08:04)
[2021-07-02] MEDS ORDERED: Ondansetron 4 MG/2 ML SDV IVPUSH PRN (08:04)
[2021-07-02] MEDS ORDERED: Nalbuphine 10 MG/1 ML Vial IVPUSH PRN (08:04)
[2021-07-02] MEDS ORDERED: Sodium Chloride 0.9% 10 ML Syringe FLUSH PRN (08:04)
[2021-07-02] MEDS ORDERED: Sodium Chloride 0.9% 2.5 ML Syringe FLUSH PRN (08:04)
[2021-07-02] MEDS ORDERED: Carboprost Tromethamine 250 MCG/1 ML Amp IM PRN (08:04)
[2021-07-02] MEDS ORDERED: Oxytocin/0.9 % Sodium Chloride 30 UNIT/500 ML BAG IV SCH ×2 (08:15)
[2021-07-02] MEDS: Lactated Ringers 1,000 ML IV SCH ×3 (08:30→12:56)
[2021-07-02] MEDS ORDERED: Ropivacaine HCl/PF 100 ML ONE (13:10)
--- NOTE | 2021-07-02 13:32 | PCM.PREANE ---
Preanesthetic Assessment - Procedure Proposed Procedure: Labor Epidural - Anesthesia/Transfusion/Family Hx Anesthesia History: Prior Anesthesia Without Reaction Family History of Anesthesia Reaction: No Transfusion History: Prior Transfusion Without Reaction Type of Transfusion Reactions: Reports: Unknown Intubation History: Unknown - Review of Systems General: No Symptoms Pulmonary: Other (Asthma with inhailer use) Cardiovascular: No Symptoms Gastrointestinal: No Symptoms, Other (GERD) Neurological: No Symptoms Other: Reports: None - Physical Assessment NPO Status Date: 07/02/21 NPO Status Time: 12:50 (not NPO) Height: 63.5 cm Weight: 94.347 kg ASA Class: 2 Mental Status: Alert & Oriented x3 Airway Class: Mallampati = 2 Dentition: Reports: Normal Dentition Thyro-Mental Finger Breadths: 3 Mouth Opening Finger Breadths: 3 ROM/Head Extension: Full Lungs: Clear to Auscultation, Normal Respiratory Effort Cardiovascular: Regular Rate, Regular Rhythm - Lab Values: Laboratory Last Values WBC 7.17 K/uL (4.0-11.0) 07/02/21 08:30 RBC 4.22 M/uL (4.30-5.90) L 07/02/21 08:30 Hgb 12.5 g/dL (12.0-16.0) 07/02/21 08:30 Hct 36.7 % (36.0-46.0) 07/02/21 08:30 MCV 87.0 fL (80.0-98.0) 07/02/21 08:30 MCH 29.6 pg (27.0-32.0) 07/02/21 08:30 MCHC 34.1 g/dL (31.0-37.0) 07/02/21 08:30 RDW Std Deviation 46.6 fl (28.0-62.0) 07/02/21 08:30 RDW Coeff of Shamar 15 % (11.0-15.0) 07/02/21 08:30 Plt Count 137 K/uL (150-400) L 07/02/21 08:30 MPV 12.30 fL (7.40-12.00) H 07/02/21 08:30 Nucleated RBC % 0.0 /100WBC 07/02/21 08:30 Nucleated RBCs # 0 K/uL 07/02/21 08:30 SARS-CoV-2 RNA (CHRISTIAN) NEGATIVE (NEGATIVE) 07/02/21 09:30 Blood Type A NEGATIVE 07/02/21 08:30 Antibody Screen NEGATIVE 07/02/21 08:30 - Allergies Allergies/Adverse Reactions: Allergies Allergy/AdvReac Type Severity Reaction Status Date / Time ceftriaxone [From Rocephin] Allergy Rash Verified 07/02/21 09:03 oseltamivir [From Tamiflu] Allergy Rash Verified 07/02/21 09:03 - Blood Blood Available: Yes Product(s) Available: PRBC (Type and screen) - Anesthesia Plan Pre-Op Medication Ordered: None - Acknowledgements Anesthesia Type Planned: Epidural Pt an Appropriate Candidate for the Planned Anesthesia: Yes Alternatives and Risks of Anesthesia Discussed w Pt/Guardian: Yes Pt/Guardian Understands and Agrees with Anesthesia Plan: Yes PreAnesthesia Questionnaire HEENT History: Reports: Impaired Vision, Other (See Below) Other HEENT History: 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 Cardiovascular History: Reports: None Respiratory History: Reports: Asthma Gastrointestinal History: Reports: None Genitourinary History: Reports: None MAKE UP OPERATOR History: Reports: Ectopic , , Spontaneous , Other (See Below) Other OB/BYN History: had Rhogam with past pregnancies, right ovarian tube removed with etopic Musculoskeletal History: Reports: None Neurological History: Reports: None Psychiatric History: Reports: None Endocrine/Metabolic History: Reports: None Hematologic History: Reports: Blood Transfusion(s), Other (See Below) Other Hematologic History: hemorrhage 11 years ago Immunologic History: Reports: None Oncologic (Cancer) History: Reports: None Dermatologic History: Reports: None - Infectious Disease History Infectious Disease History: Reports: Chicken Pox, Herpes, Novel Coronavirus - Past Surgical History Head Surgeries/Procedures: Reports: None HEENT Surgical History: Reports: Adenoidectomy, Naso-Sinus Surgery, Tonsillectomy, Other (See Below) Other HEENT Surgeries/Procedures: [place] tooth extraction Cardiovascular Surgical History: Reports: None Respiratory Surgical History: Reports: None GI Surgical History: Reports: None Female Surgical History: Reports: None Endocrine Surgical History: Reports: None Neurological Surgical History: Reports: None Musculoskeletal Surgical History: Reports: None Oncologic Surgical History: Reports: None Dermatological Surgical History: Reports: None - SUBSTANCE USE Tobacco Use Status *Q: Never Tobacco User Second Hand Smoke Exposure: No Recreational Drug Use History: No - HOME MEDS Home Medications: Home Meds Albuterol [Ventolin HFA] 2 puff INH BID 04/19/18 [History] Pnv No.95/Ferrous Fum/Folic AC [ Caplet] 1 cap PO DAILY 07/22/18 [History] valACYclovir HCl [Valtrex] 500 mg PO BID 07/02/21 [History] - CURRENT (IN HOUSE) MEDS Current Meds: Current Medications Butorphanol Tartrate (Butorphanol 1 Mg/Ml Sdv) 1 mg IVPUSH Q1H PRN PRN Reason: Pain (severe 7-10) Carboprost Tromethamine (Carboprost Tromethamine 250 Mcg/1 Ml Amp) 250 mcg IM ASDIRECTED PRN PRN Reason: Post Hemorrhage Oxytocin/Sodium Chloride (Oxytocin 30 Unit In Ns 0.9% 500 Ml Premix) 30 unit in 500 mls @ 999 mls/hr IV TITRATE JJ Tranexamic Acid 1,000 mg/ (Sodium Chloride) 110 mls @ 660 mls/hr IV ONETIME PRN PRN Reason: Bleeding Oxytocin/Sodium Chloride (Oxytocin 30 Unit In Ns 0.9% 500 Ml Premix) 30 unit in 500 mls @ 2 mls/hr IV TITRATE JJ; Protocol Last Titration: 07/02/21 13:10 Dose: 10 munits/min, 10 mls/hr Documented by: Lactated Ringer's (Ringers, Lactated) 1,000 mls @ 150 mls/hr IV ASDIRECTED JJ Last Admin: 07/02/21 12:56 Dose: 150 mls/hr Documented by: Lidocaine HCl (Lidocaine 1% 50 Ml Mdv) 50 ml INJECT ONETIME PRN PRN Reason: Laceration repair Methylergonovine Maleate (Methylergonovine 0.2 Mg/1 Ml Amp) 0.2 mg IM ASDIRECTED PRN PRN Reason: Post Hemorrhage Misoprostol (Misoprostol 200 Mcg Tab) 200 mcg PO ONETIME PRN PRN Reason: Post Hemorrhage Nalbuphine HCl (Nalbuphine 10 Mg/1 Ml Vial) 10 mg IVPUSH Q1H PRN PRN Reason: Pain (severe 7-10) Ondansetron HCl (Ondansetron 4 Mg/2 Ml Sdv) 4 mg IVPUSH Q6H PRN PRN Reason: Nausea/Vomiting Sodium Chloride (Sodium Chloride 0.9% 10 Ml Syringe) 10 ml FLUSH ASDIRECTED PRN PRN Reason: Keep Vein Open Sodium Chloride (Sodium Chloride 0.9% 2.5 Ml Syringe) 2.5 ml FLUSH ASDIRECTED PRN PRN Reason: Keep Vein Open Sodium Chloride (Sodium Chloride 0.9% 20 Ml Sdv) 10 ml IV ASDIRECTED PRN PRN Reason: IV Use Sterile Water (Water For Irrigation,Sterile 1,000 Ml Container) 1,000 ml IRR ASDIRECTED PRN PRN Reason: delivery Terbutaline Sulfate (Terbutaline 1 Mg/Ml Sdv) 0.25 mg SUBCUT ASDIRECTED PRN PRN Reason: Tacysystole Discontinued Medications Ropivacaine (Naropin 0.2%) Confirm Administered Dose 100 mls @ as directed .ROUTE .[facility]-MED ONE Stop: 07/02/21 13:11
--- NOTE | 2021-07-02 13:35 | PCM.SN.2 ---
- Pre-Procedure Checklist Attending Provider Aware: Yes Chart Reviewed: Yes Consent Signed: Yes Labs Reviewed: Yes VS/FHR Reviewed: Yes Patient Identification Confirmation Method: Reports: Chart Visual, Verbal Patient Pt an Appropriate Candidate for the Planned Anesthesia: Yes Alternatives and Risks of Anesthesia Discussed w Pt/Guardian: Yes - Procedure Procedure Start Date: 07/02/21 Procedure Start Time: 12:[address]: Reports: Blood Pressure, Heart Rate, SPO2 Functional IV: Yes Safety Measures: Reports: Patient Identified, Procedure Verified, Site Verified, Procedure Time Out Patient Position: Reports: Sitting Prep: Reports: Betadine x3 Local Anesthetic: Reports: Intradermal Wheal w Lidocaine 1% (3 ml) Regional Placement Level: Reports: L3-4 Needle: Reports: 17 g Touhy Approach: Reports: Midline Technique: Reports: KRYSTIAN Glass Syringe KRYSTIAN Needle Depth (cm): 8 cm Parasthesia: Reports: None Fluid Obtained: Reports: None Catheter Depth at Skin (cm): 15 cm Test Dose Time: 13:04 Test Dose Medication: Reports: Lidocaine 1.5% w Epinephrine 1:200,000 (5ML) Test Dose Response: Reports: Negative Loading Dose Time: 13:25 Loading Dose Medication: Ropivicaine 0.2% Loading Dose Patient Position: Supine Continuous Infusion Start Time: 13:26 Continuous Infusion Medication: Ropivicaine 0.2% Continuous Infusion Rate: 14 Continuous Infusion PCS Bolus Option: 6 Continuous Infusion Lockout Dose (cc/hr): 15 (min lockout) Patient Position Post Placement: Reports: Supine, Supline/SAMUEL Post-procedure Pain Level: 2 Level Achieved: T6 VS and FHR Monitored in Unit Post Placement: Yes Procedure End Date: 07/02/21 Procedure End Time: 13:45 Procedure Comment: Sterile technique maintained throughout
[2021-07-02] MEDS ORDERED: ePHEDrine 50 MG/ML SDV IVPUSH PRN (13:36)
--- NOTE | 2021-07-02 13:36 | PCM.POSTAN ---
POST ANESTHESIA ASSESSMENT - MENTAL STATUS Mental Status: Alert, Oriented - RESPIRATORY Respiratory Status: Respiratory Rate WNL, Airway Patent, O2 Saturation Stable - CARDIOVASCULAR CV Status: Pulse Rate WNL, Blood Pressure Stable - GASTROINTESTINAL GI Status: No Symptoms - POST OP HYDRATION Hydration Status: Adequate & Stable
[2021-07-02] MEDS ORDERED: Ropivacaine HCl/PF 200 MG in Premix Bag 1 BAG EPIDUR SCH (13:45)
[2021-07-02] MEDS ORDERED: Witch Hazel Medicated Pads 40/Jar TOP PRN (15:03)
[2021-07-02] MEDS ORDERED: Ibuprofen 400 MG Tab PO PRN (15:03)
[2021-07-02] MEDS ORDERED: Acetaminophen 500 MG Tab PO PRN ×2 (15:03)
[2021-07-02] MEDS ORDERED: Benzocaine/Menthol 20%-0.5% Spray 78 GM Cannister TOP PRN (15:03)
[2021-07-02] MEDS ORDERED: Ibuprofen 800 MG Tab PO PRN (15:03)
[2021-07-02] MEDS ORDERED: Lanolin 100% Cream 7 GM Tube TOP PRN (15:03)
[2021-07-02] MEDS ORDERED: Bisacodyl 10 MG Supp RECTAL PRN (15:03)
[2021-07-02] MEDS ORDERED: Docusate Sodium 100 MG Cap PO PRN (15:03)
--- NOTE | 2021-07-02 15:09 | PCM.DEL ---
L & D Note - General Info Date of Service: 07/02/21 - Delivery Note Labor: Augmented by ARM, Augmented by Oxytocin Delivery Outcome: Livebirth Infant Delivery Mode: Spontaneous Presentation: Right Occiput Anterior (CHARLIE) Nuchal Cord: None Anesthesia Type: Epidural Amniotic Fluid Description: Clear Episiotomy Type: None Laceration: None Placenta: Intact, Spontaneous Cord: 3 Vessels Estimated Blood Loss: 200 Resuscitation Needed: No Provider: Rhea Fishman Score 1 min: 8 Score 5 min: 9 Second Stage Interventions: Reports: Pushing Effectively - General Info Date of Service: 07/02/21 - Patient Data Weight - Most Recent: 208 lb Lab Results Last 24 Hours: Laboratory Results - last 24 hr 07/02/21 07/02/21 07/02/21 Range/Units 08:30 08:30 09:30 WBC 7.17 (4.0-11.0) K/uL RBC 4.22 L (4.30-5.90) M/uL Hgb 12.5 (12.0-16.0) g/dL Hct 36.7 (36.0-46.0) % MCV 87.0 (80.0-98.0) fL MCH 29.6 (27.0-32.0) pg MCHC 34.1 (31.0-37.0) g/dL RDW Std Deviation 46.6 (28.0-62.0) fl RDW Coeff of Shamar 15 (11.0-15.0) % Plt Count 137 L (150-400) K/uL MPV 12.30 H (7.40-12.00) fL Nucleated RBC % 0.0 /100WBC Nucleated RBCs # 0 K/uL SARS-CoV-2 RNA (CHRISTIAN) NEGATIVE (NEGATIVE) Blood Type A NEGATIVE Antibody Screen NEGATIVE Med Orders - Current: Current Medications Ephedrine Sulfate (Ephedrine 50 Mg/Ml Sdv) 10 mg IVPUSH Q1M PRN PRN Reason: Hypotension Oxytocin/Sodium Chloride (Oxytocin 30 Unit In Ns 0.9% 500 Ml Premix) 30 unit in 500 mls @ 2 mls/hr IV TITRATE JJ; Protocol Last Titration: 07/02/21 13:10 Dose: 10 munits/min, 10 mls/hr Documented by: Ropivacaine 200 mg/ Premix 100 mls @ 0 mls/hr EPIDUR ASDIRECTED [facility] Miscellaneous Medication (Phenylephrine Hcl In 0.9% Nacl 1 Mg/10 Ml Syringe) 0.1 mg IVPUSH Q1M PRN PRN Reason: Hypotension Sodium Chloride (Sodium Chloride 0.9% 10 Ml Syringe) 10 ml FLUSH ASDIRECTED PRN PRN Reason: Keep Vein Open Sodium Chloride (Sodium Chloride 0.9% 2.5 Ml Syringe) 2.5 ml FLUSH ASDIRECTED PRN PRN Reason: Keep Vein Open Sodium Chloride (Sodium Chloride 0.9% 20 Ml Sdv) 10 ml IV ASDIRECTED PRN PRN Reason: IV Use Terbutaline Sulfate (Terbutaline 1 Mg/Ml Sdv) 0.25 mg SUBCUT ASDIRECTED PRN PRN Reason: Tacysystole Discontinued Medications Butorphanol Tartrate (Butorphanol 1 Mg/Ml Sdv) 1 mg IVPUSH Q1H PRN PRN Reason: Pain (severe 7-10) Carboprost Tromethamine (Carboprost Tromethamine 250 Mcg/1 Ml Amp) 250 mcg IM ASDIRECTED PRN PRN Reason: Post Hemorrhage Oxytocin/Sodium Chloride (Oxytocin 30 Unit In Ns 0.9% 500 Ml Premix) 30 unit in 500 mls @ 999 mls/hr IV TITRATE [facility] Tranexamic Acid 1,000 mg/ (Sodium Chloride) 110 mls @ 660 mls/hr IV ONETIME PRN PRN Reason: Bleeding Lactated Ringer's (Ringers, Lactated) 1,000 mls @ 150 mls/hr IV ASDIRECTED [facility] Last Admin: 07/02/21 12:56 Dose: 150 mls/hr Documented by: Ropivacaine (Naropin 0.2%) Confirm Administered Dose 100 mls @ as directed .ROUTE .[facility] Stop: 07/02/21 13:11 Lidocaine HCl (Lidocaine 1% 50 Ml Mdv) 50 ml INJECT ONETIME PRN PRN Reason: Laceration repair Methylergonovine Maleate (Methylergonovine 0.2 Mg/1 Ml Amp) 0.2 mg IM ASDIRECTED PRN PRN Reason: Post Hemorrhage Misoprostol (Misoprostol 200 Mcg Tab) 200 mcg PO ONETIME PRN PRN Reason: Post Hemorrhage Nalbuphine HCl (Nalbuphine 10 Mg/1 Ml Vial) 10 mg IVPUSH Q1H PRN PRN Reason: Pain (severe 7-10) Ondansetron HCl (Ondansetron 4 Mg/2 Ml Sdv) 4 mg IVPUSH Q6H PRN PRN Reason: Nausea/Vomiting Sterile Water (Water For Irrigation,Sterile 1,000 Ml Container) 1,000 ml IRR ASDIRECTED PRN PRN Reason: delivery - Problem List Review Problem List Initiated/Reviewed/Updated: Yes - My Orders Last 24 Hours: My Active Orders 07/02/21 15:03 Patient Status [ADT] Routine May Shower [RC] ASDIRECTED Up ad Sandi [RC] ASDIRECTED Vital Signs [RC] PER UNIT ROUTINE RHIG WORKUP, [BBK] Routine Acetaminophen [Tylenol Extra Strength] 1,000 mg PO Q4H PRN Acetaminophen [Tylenol Extra Strength] 500 mg PO Q4H PRN Benzocaine/Menthol [Dermoplast Pain Relief 20%-0.5% Armstrong] 78 gm TOP ASDIRECTED PRN Docusate Sodium [Colace] 100 mg PO Q12H PRN Ibuprofen [Motrin] 400 mg PO Q4H PRN Ibuprofen [Motrin] 800 mg PO Q6H PRN Lanolin [Lansinoh HPA] See Dose Instructions TOP ASDIRECTED PRN bisacodyL [Dulcolax] 10 mg RECTAL ONETIME PRN witch Rita [Tucks] 1 pad TOP ASDIRECTED PRN Assess Lochia [WOMSER] Per Unit Routine Assess Uterine Involution [WOMSER] Per Unit Routine Peripheral IV Discontinue [OM.PC] Routine 07/02/21 15:04 Ice Therapy [OM.PC] Per Unit Routine Perineal Care [OM.PC] Per Unit Routine 07/02/21 15:05 Cooling Warming Measures [RC] ASDIRECTED BLOOD GAS ARTERIAL UMBILICAL [BG] Routine BLOOD GAS VENOUS UMBILICAL [BG] Routine 07/02/21 Dinner Regular Diet [DIET] 07/03/21 05:11 HEMOGLOBIN/HEMATOCRIT,HH [HEME] Timed - Assessment Assessment:: 36yo PPD0 s/p uncomplicated . A neg, Rhogam ordered. H&H in the AM. Routine care.
--- NOTE | 2021-07-02 20:18 | OR ---
SURGEON: Ti Short MD DATE OF PROCEDURE: 07/02/2021 INDICATION FOR PROCEDURE: 36-year-old G6, P3-0-2-3, at 39 weeks and 0 days, presenting for elective induction of labor. The patient's was complicated by history of genital herpes. She has been on Valtrex for suppression starting at 36 weeks. Denies any prodromal symptoms or lesions. Exam confirmed no lesions. The patient has gestational thrombocytopenia with a platelet of 141. Patient is advanced maternal age, her blood type is A negative, and she received RhoGAM in second trimester. The patient was 4 cm dilated on admission. She was started on Pitocin. She began to have regular contractions every 2 to 3 minutes. AROM was performed with clear fluid. She desired an epidural which she received with good pain control. She then quickly progressed to fully dilated and 0 station with the urge to push. She is GBS negative. PREOPERATIVE DIAGNOSES: 1. Roque intrauterine at 39 weeks and 0 days. 2. History of genital herpes. 3. Advanced maternal age. 4. Gestational thrombocytopenia. POSTOPERATIVE DIAGNOSES: 1. Roque intrauterine at 39 weeks and 0 days. 2. History of genital herpes. 3. Advanced maternal age. 4. Gestational thrombocytopenia. PROCEDURE PERFORMED: Normal spontaneous vaginal delivery. ANESTHESIOLOGIST: Dr. Jonathan Queen; and Nii Whitt CRNA. FINDINGS: Viable female . score of 8 and 9. weight was pending. Nuchal cord x1 that was wrapped around the baby's body as well. ESTIMATED BLOOD LOSS: 200 mL. DESCRIPTION OF PROCEDURE: The patient pushed very well with two contractions. The head delivered over intact perineum, restituted ROT. Anterior shoulder delivered easily followed by posterior shoulder and remaining body. There was a loose nuchal cord that was also wrapped around the baby's body. It was reduced after delivery. The baby was placed on maternal chest and evaluated by awaiting nursery staff. The baby was pink, crying vigorously, and moving all extremities immediately after delivery. The umbilical cord was clamped and cut after about 3 minutes and no longer pulsating. The umbilical cord gases were obtained. The placenta was removed with gentle traction on the umbilical cord. It was examined to be intact with three-vessel cord. Fundal massage was performed. The fundus was firm and below the umbilicus. The bleeding was light. The patient tolerated the procedure well, was given care instructions. COLLEEN MORALEZ /[id number]
--- NOTE | 2021-07-03 08:22 | PCM.PNPP ---
- General Info Date of Service: 07/03/21 Subjective Update: Patient states things have been going very well since delivery, has no complaints or concerns. Functional Status: Reports: Pain Controlled, Tolerating Diet, Ambulating, Urinating - Review of Systems General: Reports: No Symptoms HEENT: Reports: No Symptoms Pulmonary: Reports: No Symptoms Cardiovascular: Reports: No Symptoms Gastrointestinal: Reports: No Symptoms Genitourinary: Reports: No Symptoms Musculoskeletal: Reports: No Symptoms Skin: Reports: No Symptoms Neurological: Reports: No Symptoms Psychiatric: Reports: No Symptoms - Patient Data Vital Signs - Most Recent: Last Vital Signs Temp 36.1 C 07/03/21 02:59 Pulse 75 07/03/21 02:59 Resp 18 07/03/21 02:59 BP 96/62 07/03/21 02:59 Pulse Ox 99 07/03/21 02:59 Weight - Most Recent: 94.347 kg I&O - Last 24 Hours: Intake & Output 07/02/21 07/03/21 07/03/21 22:59 06:59 14:59 Intake Total 4 Output Total 122 Balance -118 Lab Results - Last 24 Hours: Laboratory Results - last 24 hr 07/02/21 07/02/21 07/02/21 Range/Units 08:30 08:30 09:30 WBC 7.17 (4.0-11.0) K/uL RBC 4.22 L (4.30-5.90) M/uL Hgb 12.5 (12.0-16.0) g/dL Hct 36.7 (36.0-46.0) % MCV 87.0 (80.0-98.0) fL MCH 29.6 (27.0-32.0) pg MCHC 34.1 (31.0-37.0) g/dL RDW Std Deviation 46.6 (28.0-62.0) fl RDW Coeff of Shamar 15 (11.0-15.0) % Plt Count 137 L (150-400) K/uL MPV 12.30 H (7.40-12.00) fL Nucleated RBC % 0.0 /100WBC Nucleated RBCs # 0 K/uL Cord ABG pH (7.18-7.38) Cord ABG Base Excess (-10--2) Cord VBG pH (7.25-7.45) Cord VBG Base Excess (-10--2) SARS-CoV-2 RNA (CHRISTIAN) NEGATIVE (NEGATIVE) Blood Type A NEGATIVE Antibody Screen NEGATIVE Screen (NEGATIVE) RhIG Candidate? Rhogam Indicated 07/02/21 07/02/21 07/03/21 Range/Units 14:48 15:49 05:46 WBC (4.0-11.0) K/uL RBC (4.30-5.90) M/uL Hgb 11.5 L (12.0-16.0) g/dL Hct 34.3 L (36.0-46.0) % MCV (80.0-98.0) fL MCH (27.0-32.0) pg MCHC (31.0-37.0) g/dL RDW Std Deviation (28.0-62.0) fl RDW Coeff of Shamar (11.0-15.0) % Plt Count (150-400) K/uL MPV (7.40-12.00) fL Nucleated RBC % /100WBC Nucleated RBCs # K/uL Cord ABG pH 7.245 (7.18-7.38) Cord ABG Base Excess -3 (-10--2) Cord VBG pH 7.333 (7.25-7.45) Cord VBG Base Excess -4 (-10--2) SARS-CoV-2 RNA (CHRISTIAN) (NEGATIVE) Blood Type Antibody Screen Screen NEGATIVE (NEGATIVE) RhIG Candidate? YES Rhogam Indicated YES, BABY RH POS H Med Orders - Current: Current Medications Acetaminophen (Acetaminophen 500 Mg Tab) 500 mg PO Q4H PRN PRN Reason: Pain (mild 1-3) Acetaminophen (Acetaminophen 500 Mg Tab) 1,000 mg PO Q4H PRN PRN Reason: Pain (mild 1-3) Benzocaine/Menthol (Benzocaine/Menthol 20%-0.5% [place] 78 Gm Cannister) 78 gm TOP ASDIRECTED PRN PRN Reason: Perineal Comfort Measure Bisacodyl (Bisacodyl 10 Mg Supp) 10 mg RECTAL ONETIME PRN PRN Reason: Constipation Docusate Sodium (Docusate Sodium 100 Mg Cap) 100 mg PO Q12H PRN PRN Reason: Constipation Emollient Ointment (Lanolin 100% Cream 7 Gm Tube) 0 gm TOP ASDIRECTED PRN PRN Reason: Sore Nipples Ephedrine Sulfate (Ephedrine 50 Mg/Ml Sdv) 10 mg IVPUSH Q1M PRN PRN Reason: Hypotension Oxytocin/Sodium Chloride (Oxytocin 30 Unit In Ns 0.9% 500 Ml Premix) 30 unit in 500 mls @ 2 mls/hr IV TITRATE JJ; Protocol Last Titration: 07/02/21 14:48 Dose: 0 munits/min, 0 mls/hr Documented by: Ropivacaine 200 mg/ Premix 100 mls @ 0 mls/hr EPIDUR ASDIRECTED JJ Ibuprofen (Ibuprofen 400 Mg Tab) 400 mg PO Q4H PRN PRN Reason: Pain (mild 1-3) Ibuprofen (Ibuprofen 800 Mg Tab) 800 mg PO Q6H PRN PRN Reason: Cramping Last Admin: 07/02/21 17:12 Dose: 800 mg Documented by: Miscellaneous Medication (Phenylephrine Hcl In 0.9% Nacl 1 Mg/10 Ml Syringe) 0.1 mg IVPUSH Q1M PRN PRN Reason: Hypotension Sodium Chloride (Sodium Chloride 0.9% 10 Ml Syringe) 10 ml FLUSH ASDIRECTED PRN PRN Reason: Keep Vein Open Sodium Chloride (Sodium Chloride 0.9% 2.5 Ml Syringe) 2.5 ml FLUSH ASDIRECTED PRN PRN Reason: Keep Vein Open Sodium Chloride (Sodium Chloride 0.9% 20 Ml Sdv) 10 ml IV ASDIRECTED PRN PRN Reason: IV Use Terbutaline Sulfate (Terbutaline 1 Mg/Ml Sdv) 0.25 mg SUBCUT ASDIRECTED PRN PRN Reason: Tacysystole Witch Corry (Witch Corry Medicated Pads 40/Jar) 1 pad TOP ASDIRECTED PRN PRN Reason: comfort care Discontinued Medications Butorphanol Tartrate (Butorphanol 1 Mg/Ml Sdv) 1 mg IVPUSH Q1H PRN PRN Reason: Pain (severe 7-10) Carboprost Tromethamine (Carboprost Tromethamine 250 Mcg/1 Ml Amp) 250 mcg IM ASDIRECTED PRN PRN Reason: Post Hemorrhage Oxytocin/Sodium Chloride (Oxytocin 30 Unit In Ns 0.9% 500 Ml Premix) 30 unit in 500 mls @ 999 mls/hr IV TITRATE [facility] Last Infusion: 07/02/21 15:03 Dose: 250 mls/hr Documented by: Tranexamic Acid 1,000 mg/ (Sodium Chloride) 110 mls @ 660 mls/hr IV ONETIME PRN PRN Reason: Bleeding Lactated Ringer's (Ringers, Lactated) 1,000 mls @ 150 mls/hr IV ASDIRECTED JJ Last Admin: 07/02/21 12:56 Dose: 150 mls/hr Documented by: Ropivacaine (Naropin 0.2%) Confirm Administered Dose 100 mls @ as directed .ROUTE .[facility] Stop: 07/02/21 13:11 Lidocaine HCl (Lidocaine 1% 50 Ml Mdv) 50 ml INJECT ONETIME PRN PRN Reason: Laceration repair Methylergonovine Maleate (Methylergonovine 0.2 Mg/1 Ml Amp) 0.2 mg IM ASDIRECTED PRN PRN Reason: Post Hemorrhage Misoprostol (Misoprostol 200 Mcg Tab) 200 mcg PO ONETIME PRN PRN Reason: Post Hemorrhage Nalbuphine HCl (Nalbuphine 10 Mg/1 Ml Vial) 10 mg IVPUSH Q1H PRN PRN Reason: Pain (severe 7-10) Ondansetron HCl (Ondansetron 4 Mg/2 Ml Sdv) 4 mg IVPUSH Q6H PRN PRN Reason: Nausea/Vomiting Sterile Water (Water For Irrigation,Sterile 1,000 Ml Container) 1,000 ml IRR ASDIRECTED PRN PRN Reason: delivery Last Admin: 07/02/21 14:35 Dose: 1,000 ml Documented by: - Interaction Infant Disposition, : in Room with Family Interaction: Holding Infant Feeding: Breastfed Infant; Nursed Well Support Person: - Recovery Exam Fundal Tone: Firm Fundal Level: At Umbilicus Fundal Placement: Midline Lochia Amount: Small Lochia Color: Rubra/Red Bladder Status: Voiding Urinary Elimination: Voided Other Urinary Elimination, : due to void - Exam General: Alert, Oriented Neck: Supple Lungs: Normal Respiratory Effort GI/Abdominal Exam: Soft, Non-Tender, No Distention Extremities: Non-Tender, No Pedal Edema Skin: Warm, Dry, Intact Neurological: No New Focal Deficit Psy/Mental Status: Alert, Normal Affect, Normal Mood - Problem List & Annotations (1) Vaginal delivery SNOMED Code(s): 186916943 Code(s): O80 - ENCOUNTER FOR FULL-TERM UNCOMPLICATED DELIVERY Status: Acute Current Visit: No - Problem List Review Problem List Initiated/Reviewed/Updated: Yes - My Orders Last 24 Hours: My Active Orders 07/02/21 08:04 Notify Provider [RC] PRN Oxygen Therapy [RC] ASDIRECTED Peripheral IV Care [RC] PRN Sodium Chloride 0.9% [Normal Saline] 10 ml IV ASDIRECTED PRN Sodium Chloride 0.9% [Saline Flush] 10 ml FLUSH ASDIRECTED PRN Sodium Chloride 0.9% [Saline Flush] 2.5 ml FLUSH ASDIRECTED PRN Terbutaline [Brethine] 0.25 mg SUBCUT ASDIRECTED PRN Peripheral IV Insertion Adult [OM.PC] Routine Resuscitation Status Routine 07/02/21 08:15 Oxytocin/0.9 % Sodium Chloride [Oxytocin 30 Unit in NS 0.9% 500 ML Premix] 30 unit in 500 ml IV TITRATE Medication Administration Instruction [OM.PC] Q3H 07/02/21 08:30 RPR (SYPHILIS SERO) W/ RFLX [REF] Routine 07/03/21 08:21 Ready for Discharge [RC] PER UNIT ROUTINE - Assessment Assessment:: 36yo PPD1 s/p uncomplicated . - Plan Plan:: Continue routine cares. A neg, Rhogam given. GBS negative. Patient desires discharge home today if cleared by [facility]. Reviewed discharge instructions/precautions. All questions answered.
--- NOTE | 2021-07-03 09:55 | PCM48HPAN ---
Post Anesthesia Note - EVALUATION WITHIN 48HRS OF ANESTHETIC Vital Signs in Normal Range: Yes Patient Participated in Evaluation: Yes Respiratory Function Stable: Yes Airway Patent: Yes Cardiovascular Function Stable: Yes Hydration Status Stable: Yes Pain Control Satisfactory: Yes Nausea and Vomiting Control Satisfactory: Yes Mental Status Recovered: Yes Vital Signs: Last Vital Signs Temp 36.3 C 07/03/21 08:00 Pulse 71 07/03/21 08:00 Resp 16 07/03/21 08:00 BP 120/72 07/03/21 08:00 Pulse Ox 98 07/03/21 08:00 - COMMENTS/OBSERVATIONS Free Text/Narrative:: Pt states to being satisfied with degree of analgesia created by epidural. Pt states to being up and walking with no residual numbness or weakness.
== END 2021-07-03 17:26 | disposition home or self-care (01) | DRG 560 ==
LOC: MW.OBCHECK 08:00 → MW.OB 08:01 → MW.OBCHECK 08:04 → MW.OB 08:04 → OBSVTOIN 14:46 → MW.OB 18:45
PROVIDERS: ADMIT Obstetrics & Gynecology; ATTEND Obstetrics & Gynecology
PROC: 10E0XZZ Delivery of Products of Conception, External Approach (ICD-10-PCS; principal; 2021-07-02)
PROC: 10907ZC Drainage of Amniotic Fluid, Therapeutic from Products of Conception, Via Natural or Artificial Opening (ICD-10-PCS; 2021-07-02)
PROC: 3E0R3BZ Introduction of Anesthetic Agent into Spinal Canal, Percutaneous Approach (ICD-10-PCS; 2021-07-02)
PROC: 00HU33Z Insertion of Infusion Device into Spinal Canal, Percutaneous Approach (ICD-10-PCS; 2021-07-02)
DX: O99.52 Diseases of the respiratory system complicating childbirth (principal); Z37.0 Single live birth; J45.909 Unspecified asthma, uncomplicated; O99.12 Other diseases of the blood and blood-forming organs and certain disorders involving the immune mechanism complicating childbirth; D69.6 Thrombocytopenia, unspecified; Z3A.39 39 weeks gestation of pregnancy; O69.81X0 Labor and delivery complicated by cord around neck, without compression, not applicable or unspecified; Z20.822 Contact with and (suspected) exposure to COVID-19
CPT/HCPCS: 01967; 36415; 36430; 51702; 59025; 59409; 82803; 85014; 85018; 85027; 85460; 86592; 86850; 86900; 86901; A9270-GY; J2590; J2790; J2795; J7120; U0002